=== PATIENT | male | born 1975 | race Caucasian/White ===

== ENCOUNTER 2019-05-14 14:19 | Emergency (ER) | payer SELFPAY ==
[~2019-05-14] VITALS: Ht 170.2 cm; Wt 90.5 kg
--- NOTE | 2019-05-14 15:04 | RAD ---
Examination: 3 views of the left hand HISTORY: History of foreign body in hand COMPARISON: None available. Findings/ impression: There is a long nail identified in the soft tissue of the hand projecting over the first, second, third metacarpals. No obvious acute fracture is evident. Electronically signed by: Malik Julian MD (05/14/2019 3:01 PM) [id number]
[2019-05-14] MEDS ORDERED: HYDROcodone/APAP 10/325 1 TAB TABLET PO ONE (15:15)
--- NOTE | 2019-05-14 15:28 | PHYS DOC ---
Past History Past Medical History: No Pertinent History Past Surgical History: No Surgical History Alcohol Use: None Drug Use: None Adult General Chief Complaint Chief Complaint: FOREIGN BODY HPI HPI 44-year-old male presents with foreign body in his left hand. The patient was using a nail gun when he actively shot a nail through the left hand traversing from lateral to medial. It appears to 3 inch long framing nail. He had some bleeding which is now controlled. It is painful. The patient has full sensation in all 5 digits. He denies any other injuries. His last tetanus shot was one year ago. Review of Systems Review of Systems Constitutional: Denies fever or chills [] Eyes: Denies change in visual acuity, redness, or eye pain [] HENT: Denies nasal congestion or sore throat [] Respiratory: Denies cough or shortness of breath [] Cardiovascular: No additional information not addressed in HPI [] GI: Denies abdominal pain, nausea, vomiting, bloody stools or diarrhea [] : Denies dysuria or hematuria [] Musculoskeletal: Nail in left hand[] Integument: Denies rash or skin lesions [] Neurologic: Denies headache, focal weakness or sensory changes [] Endocrine: Denies polyuria or polydipsia [] All other systems were reviewed and found to be within normal limits, except as documented in this note. Current Medications Current Medications Current Medications Medications (Trade) Dose Ordered Sig/Earnest Start Time Stop Time Status Last Admin Dose Admin Acetaminophen/ Hydrocodone Bitart (Lortab 10/325) 1 tab 1X ONCE 05/14/19 15:15 05/14/19 15:18 DC Morphine Sulfate (Morphine 2mg Syringe) 2 mg 1X ONCE 05/14/19 15:30 05/14/19 15:31 Ondansetron HCl (Zofran) 4 mg 1X ONCE 05/14/19 15:30 05/14/19 15:31 Allergies Allergies Allergies Coded Allergies Type Severity Reaction Last Updated Verified No Known Drug Allergies 05/14/19 No Physical Exam Physical Exam Constitutional: Well developed, well nourished, no acute distress, non-toxic appearance. [] HENT: Normocephalic, atraumatic, bilateral external ears normal, oropharynx moist, no oral exudates, nose normal. [] Eyes: PERRLA, EOMI, conjunctiva normal, no discharge. [] Neck: Normal range of motion, no tenderness, supple, no stridor. [] Cardiovascular:Heart rate regular rhythm, no murmur [] Lungs & Thorax: Bilateral breath sounds clear to auscultation [] Abdomen: Bowel sounds normal, soft, no tenderness, no masses, no pulsatile masses. [] Skin: Warm, dry, no erythema, no rash. [] Back: No tenderness, no CVA tenderness. [] Extremities: Head of the nail protruding from the left hand on the radial side[] Neurologic: Alert and oriented X 3, normal motor function, normal sensory function, no focal deficits noted. [] Psychologic: Affect normal, judgement normal, mood normal. [] Current Patient Data Vital Signs Vital Signs Date Time Temp Pulse Resp B/P (MAP) Pulse Ox O2 Delivery O2 Flow Rate FiO2 05/14/19 14:36 99.2 66 16 95 Room Air 05/14/19 14:29 142/77 (98) EKG EKG [] Radiology/Procedures Radiology/Procedures [] Impressions: Examination: 3 views of the left hand HISTORY: History of foreign body in hand COMPARISON: None available. Findings/ impression: There is a long nail identified in the soft tissue of the hand projecting over the first, second, third metacarpals. No obvious acute fracture is evident. Electronically signed by: Malik Julian MD (05/14/2019 3:01 PM) [id number] DICTATED AND SIGNED BY: MALIK JULIAN MD DATE: 05/14/19 1509 CC: BUNNY SHIN DO; BRINDA GEORGE DO ~ Course & Med Decision Making Course & Med Decision Making Pertinent Labs and Imaging studies reviewed. (See chart for details) The patient's x-ray shows that this is probably just in the soft tissue. This would be too location possibly 3 location nerve block. We do not have a backup resources here if I move it and there were to be a complication. I explained this to the patient and he would prefer to go to a hand surgeon. I discussed this with our orthopedic department and they agreed that he should have a hand surgeon. We have paged [facility]. Basic labs are ordered. I will give the patient 4 mg of Zofran and 2 mg of morphine for pain. Dr. Dela Cruz at [facility] looked at the x-rays and advised that we just pulled the nail out. He felt as though there was no bony involvement inserted was not necessary. I shared this with the patient and he was willing to attempted in the ER. I was able to remove the foreign body by manual extraction with my hands without complication. The area of the wound was cleaned before and after removal with chlorhexidine solution. The patient was given 1 g Rocephin IV and I will discharge him on an additional 7 days of Keflex as well as a short course of [place] 5/325 for pain. He is stable for discharge at this time. [] Dragon Disclaimer Dragon Disclaimer This electronic medical record was generated, in whole or in part, using a voice recognition dictation system. Departure Departure: Impression: Primary Impression: Foreign body of left hand Disposition: HOME, SELF-CARE Condition: IMPROVED Referrals: BRINDA GEORGE DO (PCP) Patient Instructions: Foreign Body-Brief Scripts Hydrocodone Bit/Acetaminophen (NORCO 5-325 TABLET) 1 Each Tablet 1 TAB PO PRN Q6HRS PRN for PAIN, #14 TAB 0 Refills Prov: BUNNY SHIN DO 05/14/19 Cephalexin (KEFLEX) 500 Mg Capsule 1 CAP PO TID for infection prophylaxis, #21 CAP Prov: BUNNY SHIN DO 05/14/19 Problem Qualifiers Primary Impression: Foreign body of left hand Encounter type: initial encounter Qualified Codes: S60.552A - Superficial foreign body of left hand, initial encounter BUNNY SHIN DO May 14, 2019 15:28
[2019-05-14 15:29] VITALS: BP 140/87
[2019-05-14] MEDS ORDERED: MORPHINE SULFATE 2 MG/ML DISP.SYRIN. IV ONE (15:30)
[2019-05-14] MEDS ORDERED: ONDANSETRON PF 4 MG/2 ML VIAL. IV ONE (15:30)
[2019-05-14] MEDS ORDERED: MORPHINE SULFATE 4 MG/ML DISP.SYRIN. IV ONE (16:15)
[2019-05-14] MEDS ORDERED: cefTRIAXone SODIUM 1 GM VIAL ONE (16:37)
[2019-05-14] MEDS ORDERED: IV NORMAL SALINE 50ML 50 ML ONE (16:38)
[2019-05-14] MEDS ORDERED: CEPH-264 PO (16:46)
[2019-05-14] MEDS ORDERED: HYDR-3165 PO (16:47)
== END 2019-05-14 17:02 | disposition home or self-care (01) ==
LOC: ER 14:20
DX: S60.552A Superficial foreign body of left hand, initial encounter (principal); W29.4XXA Contact with nail gun, initial encounter; Y93.89 Activity, other specified; Y92.89 Other specified places as the place of occurrence of the external cause; Y99.8 Other external cause status
CPT/HCPCS: 73130; 96365; 96375; 96376; 99284; J0696; J2270; J2405